=== PATIENT | female | born 1960 | race Caucasian/White ===

== ENCOUNTER → 2021-07-20 14:36 | Outpatient (CLI) | payer OTHER, SELFPAY ==
--- NOTE | 2021-07-20 14:39 | DI.RAD.S_ITS ---
PROCEDURE: XR CERVICAL SPINE 4V OR 5V INDICATIONS: NECK PAIN TECHNIQUE: 5 views of the cervical spine acquired. COMPARISON: None. FINDINGS: Bones: No fractures or dislocations to the C7-T1 level. Oblique images demonstrate no bony foraminal stenoses. Cervical straightening is present. Multilevel moderate degenerative disc space narrowing is present most notable at C5-6 and C6-7. Multilevel uncovertebral hypertrophy are present. Right foraminal narrowing is present most notable at C6-7 and C5-6 on the left. Soft tissues: No prevertebral soft tissue swelling. IMPRESSION: Multilevel degenerative changes most notable at C5-6 and C6-7. Dictated by: Lisy Henao M.D. on 07/20/2021 at 19:04 Approved by: Lisy Henao M.D. on 07/20/2021 at 19:04
== END ==
PROVIDERS: PCP Family Medicine; Referring Provider Physical Medicine & Rehabilitation; Visit Provider Physical Medicine & Rehabilitation
DX: M54.2 Cervicalgia (principal); M47.812 Spondylosis without myelopathy or radiculopathy, cervical region; G44.86 Cervicogenic headache; Z68.24 Body mass index [BMI] 24.0-24.9, adult
CPT/HCPCS: 72050; 99214

== ENCOUNTER → 2022-03-31 12:48 | Outpatient (CLI) | payer OTHER, SELFPAY ==
[2022-04-19 00:22] LABS: Miscellaneous to LabCorp Negative
== END ==
PROVIDERS: PCP Physician Assistant Medical; Visit Provider Physician Assistant Medical
DX: N76.0 Acute vaginitis (principal)
CPT/HCPCS: 87661; 87798; 87801

== ENCOUNTER 2022-05-02 08:57 | Outpatient (CLI) | payer OTHER, SELFPAY ==
[2022-05-02] VITALS (9 sets, daily range): BP systolic 106–134; BP diastolic 53–70; PULSE 71–81; RESP 12–21; TEMP 37.1; O2SAT 97–99
--- NOTE | 2022-05-02 08:59 | DI.RAD.S_ITS ---
PROCEDURE: PAIN C/T FACET INJ/BLK 1ST L INDICATIONS: SPINAL STENOSIS COMPARISON: [facility], RG, MRI C-SPINE W/O CONTRAST, 12/09/2021, 11:26. CR, XR CERVICAL SPINE 4V OR 5V, 07/20/2021, 14:42. FINDINGS: Fluoroscopic spot filming was performed to verify placement of spinal needles at the right C5-C6 and C6-C7 level(s), as labeled on the films. Appropriate location(s) of the needle tip(s) was confirmed by injection of iodinated contrast. IMPRESSION: Fluoroscopy guidance for needle placement. Dictated by: Peg Blancas M.D. on 05/02/2022 at 11:00 Approved by: Peg Blancas M.D. on 05/02/2022 at 11:01
[2022-05-02] MEDS: MIDAZOLAM 2 MG/2 ML VIAL IV (10:23)
[2022-05-02] MEDS: DEXAMETHASONE 10 MG/ML VIAL 20 MG INJ (10:27)
[2022-05-02] MEDS: IOPAMIDOL 15 ML VIAL 3 ML INJ (10:28)
[2022-05-02] MEDS: BUPIVACAINE 0.5% (PF) 10 ML VIAL INJ (10:28)
--- NOTE | 2022-05-02 10:39 | P.PCN_ITS ---
Date/Time/Diagnoses Date of procedure: 05/02/22 Time of procedure: 10:39 Pre-procedure diagnosis: 1. FACET ARTHROPATHY 2. AXIAL NECK PAIN Post-procedure diagnosis: same Procedure Notes Procedure: 1. FLUOROSCOPICALLY GUIDED, CONTRAST-CONTROLLED RIGHT C5/6 AND C6/7 FACET JOINT INJECTIONS WITH CONSCIOUS SEDATION. Indications: Elin is referred by PAC Harman for treatment of Axial Neck Pain Physician: Derek Thompson Total Fluoroscopy time (seconds): 8 Total sedation minutes: 9 Complications: none Procedure in detail & Post-procedure care: DESCRIPTION OF PROCEDURE Fluoroscopically guided, contrast-controlled right C5/6 and C6/7 facet joint injections with conscious sedation. Following review of allergy and review of potential side effects and complications, including, but not necessarily limited to, infection, allergic reaction, local tissue breakdown, stroke, temporary or permanent nerve injury and paralysis, the patient indicated that the patient understood and agreed to proceed. An informed consent document was signed by the patient, witnessed by a nurse, and placed in the patient's chart. Additionally, other treatment options including medications, modalities, and physical therapy were reviewed with the patient. After review of previous anaesthesic history and IV conscious sedation the patient was deemed safe to proceed with today?s procedure with IV conscious sedation as ASA class II designation. Safety time-out was performed to confirm patient ID, procedure to be performed and site of procedure. IV sedation was accomplished with a combination of 2mg of Versed was administered by the RN after DO order, titrated to patient comfort during the course of the procedure while the patient remained responsive to all verbal commands In the prone position, following sterile prep and drape of the cervical spine region, the posterior aspect of the right C5/6 and C6/7 facet joints were identified fluoroscopically. The skin was anesthetized via a 25-gauge 1.5-inch needle with 1% lidocaine solution into the corresponding facet joints. At this point, a 25-gauge 2.5-inch spinal needle was atraumatically introduced and advanced under fluoroscopic guidance into the corresponding facet joints. Following negative aspiration, injections of approximately 0.2-cc of Isovue 200 confirmed interarticular placement without vascular uptake. At this point, a total of 1cc including 0.5cc or 5mg of dexamethasone combined with 0.5cc of 1% lidocaine solution was injected without complication into each of the corresponding facet joints. The procedure tolerated the procedure well without signs or symptoms of complications prior to transfer to the recovery area continued monitoring without incident. The patient was then transferred to the recovery area where they were observed for an appropriate period of time after the injection. The patient reported a VAS score of 7 prior to the procedure and a post- procedure VAS of 0. POST OP INSTRUCTIONS They were provided a Pain Log to continue to record their response to the target-specific procedure prior to their follow-up visit with their referring physician. Additionally, specific post-injection care instructions and a contact number to our office were provided if concerns arise regarding possible complications associated with the procedure are suspected.
== END 2022-05-02 10:59 | disposition home or self-care (01) ==
LOC: RAD 08:58
PROVIDERS: PCP Physician Assistant; Referring Provider Physical Medicine & Rehabilitation; Visit Provider Physical Medicine & Rehabilitation
DX: M47.812 Spondylosis without myelopathy or radiculopathy, cervical region (principal)
CPT/HCPCS: 64490; 64491; J1100; J2250

== ENCOUNTER → 2022-05-22 14:01 | Outpatient (CLI) | payer OTHER, SELFPAY | PROVIDERS: PCP Physician Assistant; Visit Provider Nurse Practitioner Adult Health | DX: N76.0 Acute vaginitis (principal) | CPT/HCPCS: 87798 ==

== ENCOUNTER → 2023-04-25 10:04 | Outpatient (CLI) | payer OTHER, SELFPAY | PROVIDERS: PCP Physician Assistant; Visit Provider Nurse Practitioner Adult Health | DX: N76.0 Acute vaginitis (principal) | CPT/HCPCS: 87798; 87801 ==

== ENCOUNTER 2023-12-31 13:45 | Outpatient (RCR) | payer OTHER, SELFPAY ==
--- NOTE | 2023-07-27 17:15 | PT.OIE ---
Current Diagnoses Stiffness of unspecified hip, not elsewhere classified (07/27/23) Low back pain, unspecified (07/27/23) Muscle weakness (generalized) (07/27/23) Stress incontinence (female) (male) (07/27/23) Other female genital prolapse (07/27/23) Unspecified dyspareunia (07/27/23) Past Medical History (Last Updated 05/23/23 @ 08:38 by PITA Rose) Cervicogenic headache Desquamative inflammatory vaginitis Facet arthropathy, cervical HNP (herniated nucleus pulposus), cervical Menopausal syndrome on hormone replacement therapy Pelvic floor relaxation Vulvovaginitis Past Surgical History (Last Reviewed 03/16/22 @ 13:45 by Derek Thompson DO) History of surgery on lower extremity Hx of tonsillectomy Visit Care Team Role Provider Type Carina Harman PA-C Family Provider Advanced Knife Setter Grinder Machine Primary Care Provider Specialty: Medical Address: [address] [place] [address], [facility] Email: [email or web address] PITA Rose Attending Provider Advanced Kn[employer] Setter Gr[employer] Machine Referring Provider Specialty: Medical Address: [address] [place] [address], [id number] Email: [email or web address] Physical Therapy Initial Evaluation PT-OP-A Visit Information Start: 07/10/23 16:35 Freq: Status: Active Protocol: Document 07/27/23 13:04 LRN (Rec: 07/27/23 13:56 LRN [id number]) Out-Patient Physical Therapy Visit Information Visit Information Visit Type Initial Evaluation Visit Start Time 13:04 Visit Stop Time 13:55 Visit Number 1 Evaluation Information Evaluation Date 07/27/23 Precautions Precautions Denies latex/tape allergy, celiac disease (age 38), on thyroid medication for hypothyroidism, depression controllled by medication, back pain from stenosis of lower spine and scoliosis as a child, last 2 yrs fallen x2 tripping, neck/TMJ pain since PT-OP-B Current Condition Start: 07/10/23 16:35 Freq: Status: Active Protocol: Document 07/27/23 13:04 LRN (Rec: 07/27/23 13:56 [facility] [id number]) Current Condition History of Current Condition Onset Date 4 yrs ago and recently Current Complaints Hasn't had sex for 3 months and 2x now outside skin irritated History of Current Condition Most recent onset of pain was 3 months ago. Treated with Flagence 6 wks ago and has been off the medication for 1 month. Topical estrogen irritates the PF tissues causing burning pain. Pt reports getting Bacterial Vaginitis causing urinary leakage ~ 2x/year. Pt states she is on hormone therapy and sexual intercourse is very irritating. Has been on 2 courses of anti-biotics ending a month ago and was cleared from infection (burning is gone). 4 yrs ago when it first happened (was told it was a kidney infection because blood in urine) was given topical and was given flagelence and the pain went away. So has been given the anti-biotic 2x/yr when the symptoms show. she was prescribed flagel (anti-biotic ) that cleared symptom of burning. Infection did not show up on testing. FLAGEL. Currently using estrogen tablet that isn't dissolving by morning. Using lubricant for intercourse (over the counter). Urinary leakage with cough, sneeze, jump, or can't get to bathroom in time. At time of referral, leakage was constant until BV cleared . Cough and lots of water makes her leak a lot more. Prior Treatments and Tests PT after having 3rd baby - treatment in [place]. Developmental History Developmental History 1st child at 40 yo 3 preg, 3 birtsh last child at 40, vaginal births 9-10# babies. No urinary leakage after pregnancies. Treatment Goals Patient/Caregiver Goals Pt goals: -learn PF ex's that may benefit her. - eliminate the urinary leakage (currently urinary leakage is 1-2x/day, small- drops of leakage (1/2 tsp). -decrease skin irritation on outside of labia. -decrease pain with intercourse. - Personal Factors Other Personal Factors That May Effect Frequent anti-biotic Therapy/Recovery treatments for Bacterial Vaginitis, Depression, hx of neck/back pain, spinal stenosis & scoliosis. PT-OP-C Subjective Start: 07/10/23 16:35 Freq: Status: Active Protocol: Document 07/27/23 13:04 LRN (Rec: 07/27/23 13:56 [facility] [id number]) Patient Questionnaires Pelvic Pain and Urgency/Frequency Patient Symptom Scale Pelvic Pain Score 13 OP-PT Pain Assessment Pain Assessment Grid Paper Pain Assessment Grid Completed Yes Location L LB Pain Location Details L lower back sacral border Intensity 3 Scale Used Numeric (0 - 10) Description Dull R neck Pain Location Details R neck/upper shoulder - anter & riveter Intensity 3 Scale Used Numeric (0 - 10) Description Dull Frequency Constant PT-OP-I Pelvic Floor Start: 07/10/23 16:35 Freq: Status: Active Protocol: Document 07/27/23 13:04 LRN (Rec: 07/27/23 13:56 [facility] [id number]) Pelvic Floor Assessment Urine Other Urinary Symptoms Strains to pass urine. Trigger is running water, Slow and hesitant stream. Leakage Cause Cough,Exercise,Sneeze Leaks Per Day 1-2x/day Voiding Frequency 10 Nocturia 1 Pads Used In 24 Hours 0 Bowel Bowel Symptoms Constipation Other Bowel Symptoms Constipation her whole life Fecal leakage noted the past month Bowel Movement Frequency 1/3 days Pelvic Clock Pelvic Clock 12-3 Tenderness,Tightness Pelvic Clock 3-6 Tenderness,Tightness Prolapse Cystocele Grade 3 Rectocele Grade 3 Perineal Descent Resting Present Bearing Present SEMG (uV) Quick Contraction 6 10 Second Contraction 10 Recruitment Pattern Fair Relaxation Poor/Slow Contraction Ability Manual Muscle Testing Left 1 Manual Muscle Testing Right 2 Manual Muscle Testing Posterior 0 Muscle Endurance (Seconds) 3 Number of Quick Contractions In 10 0 Seconds Comments Pelvic Floor Comments Pt external skin tissue is very dry. She has white chunks in labia minora and just inside vaginal canal. PT-OP-J Posture/Palpation/Skin Start: 07/10/23 16:35 Freq: Status: Active Protocol: Document 07/27/23 13:04 LRN (Rec: 07/27/23 13:56 [facility] [id number]) Posture Evaluation Position Standing Head/C-Spine Posture Neutral Position T-Spine Posture Flattened L-Spine Posture Increased Lordosis Arm Posture (L) Neutral,(R) Neutral Pelvis Posture Anteriorly Tilted Comments Posture Comments Above assessment is With shoes /orthotic; also noted mid thoracic curve w/apex on R ~T6 region. Assessment of spinal curvature without shoes/orthotic: Mid thoracic curve w/apex on R, Upper L/S w/apex on left. PT-OP-K Range of Motion Start: 07/10/23 16:35 Freq: Status: Active Protocol: Document 07/27/23 13:04 LRN (Rec: 07/27/23 13:56 LRN [id number]) Lumbar Spine Range of Motion Lumbar Spine Active Degrees Testing Position Standing Flexion 110 Extension 10 Rotation Left 45 Rotation Right 25 Lateral Flexion Left 22 Lateral Flexion Right 15 Hip Goniometric Range of Motion Hip Right Passive Testing Position Supine Abduction 30 Internal Rotation 35 External Rotation 65 Left Passive Testing Position Supine Abduction 28 Internal Rotation 30 External Rotation 55 PT-OP-M Strength Start: 07/10/23 16:35 Freq: Status: Active Protocol: Document 07/27/23 13:04 LRN (Rec: 07/27/23 13:56 LRN [id number]) Trunk Strength Trunk Manual Muscle Testing Rotation Right 4 Good Core Stabilization Good core strength (4/5) Hip Strength Hip Manual Muscle Testing Right Flexion (L2) 3+ Fair+ External Rotation 3 Fair Comments Strength is 5/5 except as indicated above. Left Flexion (L2) 3+ Fair+ External Rotation 3 Fair Comments Strength is 5/5 except as indicated above. PT-OP-Q Treatments Start: 07/10/23 16:35 Freq: Status: Active Protocol: Document 07/27/23 13:04 LRN (Rec: 07/27/23 13:56 LRN [id number]) Self-Care/Home Management Treatment Education Other Education Discussed results of evaluation, goals, and plan of care (POC) with pt, discussed attendance/cx/dns policy; pt agreeable to goals, attendance /cx/dns policy and POC. Issued, discussed, & reviewed Bladder Diary for pt to complete over the next 7 days. Explained how to fill out diary and counting of urination times and for tracking of bowel movements and bowel types (explained). Activities Self-Care/Home Management Activities Issued & reviewed HEP: Kegel ex's and discussed exercise of Quick Flicks, Long Holds and Aggravators. PT-OP-T Assessment and Plan Start: 07/10/23 16:35 Freq: Status: Active Protocol: Document 07/27/23 13:04 LRN (Rec: 07/27/23 13:56 LRN [id number]) Physical Therapy Assessment Rehab Potential Rehabilitation Potential Good Evaluation Complexity Number of Personal Factors/Comorbidities 3 or More Number of Body Systems Impaired 4 or More Clinical Presentation at Evaluation Evolving Impairments Impairments Pain,Posture,ROM,Strength, Transfers Other Impairments Lacks proper deep breathing method Goals Three Impairment Pain with intercourse Impairment Skin irritation of outside of labia Majora. Pain with intercourse Short Term Goal (STG) Refer pt back to provider for medication to improve tissue health to decrease skin irritation on outside of labia . STG Duration 4 wks-08/24/23 Informatica Goal (LTG) Decrease PF tone (L>R) and modify positions as needed to decrease pain with intercourse . LTG Duration 23 wks-01/04/24 Two Impairment Stress urinary leakage with Impairment Urinary leakage with cough, sneeze, jump, and trying to get to bathroom in time, ( currently urinary leakage is 1 -2x/day, small-drops of leakage). Short Term Goal (STG) Pt will be educated in urge deference technique to be able to walk to bathroom without urinary leakage. STG Duration 4 wks-08/24/23 Detention Goal (LTG) Improve PF strength with pt able to eliminate small drops of urinary leakage with cough, sneeze, jumping. LTG Duration 23 wks-01/04/24 One Impairment Lacks appropriate self care HEP. Short Term Goal (STG) Pt educated in proper transfers for core pressure management. STG Duration 4 wks-08/24/23 Informatica Goal (LTG) Pt will be independent in a self care HEP for PF L sided relaxation (stretching when cleared of infections) & PF strengthening for lift of PF. Core strengthening & LBP mobility ex's; L Hip ER/IR mobility ex's (1-2 wks, then emilia when equal); hip strengthening (flex, ER). LTG Duration 23 wks-01/04/24 Assessment Summary Assessment Pt is a 63 yo female who presents with c/o stress urinary incontinence, dyspareunia, LBP and demonstrates decreased PF/hip/ core strength & decreased L PF & hip mobility, lack of knowlege of core pressure management and HEP. The pt has white chunky discharge in vaginal region that will need further medical assessment since the pt reports recently being treated for bacterial vaginitis. The pt requests PT attendance every other week [place] therefore it is expected that the pt's rehab program will extend longer than normal. The pt will benefit from skilled physical therapy to work towards achieving the above stated goals. Physical Therapy Plan Frequency and Duration Frequency of Treatment 1x/Week Duration of treatment (weeks) 23 Plan of Care Start Date 07/27/23 Plan of Care End Date 01/04/24 Therapeutic Interventions Therapeutic Interventions Home Exercise Program,Joint Mobilizations,Manual Therapy, Neuromuscular Re-education, Self-Care/Home Management,Soft Tissue Mobilization, Therapeutic Activities, Therapeutic Exercises Modalities Biofeedback,Electric Stimulation Other Referrals/Consults Referrals/Consults Recommended If pt still exhibits white chunky discharge at her next appt, then recommend pt be cultured for possible vaginal infection. Pt assessment for medication to promote tissue health ( external/?internal estrogen creme). Next Visit Focus/Plan Next Note Type Treatment Note Next Visit Plan Review Bladder dairy and discussed fluid intake (AM/PM) , bowel movement frequency, & nighttime voiding frequency. Reassess for vaginal white chunks and if present, discuss return to referring provider for assessment. Educate in urge deference technique. Neuro-priti: Coordination of breathwork with transfers and ADLs. Education: PF muscles and internal organ positioning, explaining cystocele and rectocele and discussed how this can worsen with decreased bowel mobility and breath holding, proper BM, bowel care /massage, and program if needed. Education: PF hygiene, PF care. EXER/HEP: R PF strengthening/ L PF relaxation (stretch once cleared of possible infection) , Core/TA stab, L>R hip strengthening.
--- NOTE | 2023-07-27 17:16 | PT.OPPOC ---
Physical, Occupational & Speech Therapy At [facility] Current Diagnoses Stiffness of unspecified hip, not elsewhere classified (07/27/23) Low back pain, unspecified (07/27/23) Muscle weakness (generalized) (07/27/23) Stress incontinence (female) (male) (07/27/23) Other female genital prolapse (07/27/23) Unspecified dyspareunia (07/27/23) Visit Care Team Role Provider Type Carina Harman PA-C Family Provider Advanced Lime Mixer Primary Care Provider Specialty: Medical Address: [address] [place] [address], [address] Email: [email or web address] PITA Rose Attending Provider Advanced Lime Mixer Referring Provider Specialty: Medical Address: [address] [place] [address], [address] Email: [email or web address] Plan Of Care PT-OP-T Assessment and Plan Start: 07/10/23 16:35 Freq: Status: Active Protocol: Document 07/27/23 13:04 LRN (Rec: 07/27/23 13:56 LRN [id number]) Physical Therapy Assessment Rehab Potential Rehabilitation Potential Good Evaluation Complexity Number of Personal Factors/Comorbidities 3 or More Number of Body Systems Impaired 4 or More Clinical Presentation at Evaluation Evolving Impairments Impairments Pain,Posture,ROM,Strength, Transfers Other Impairments Lacks proper deep breathing method Goals Three Impairment Pain with intercourse Impairment Skin irritation of outside of labia Majora. Pain with intercourse Short Term Goal (STG) Refer pt back to provider for medication to improve tissue health to decrease skin irritation on outside of labia . STG Duration 4 wks-08/24/23 [facility] Goal (LTG) Decrease PF tone (L>R) and modify positions as needed to decrease pain with intercourse . LTG Duration 23 wks-01/04/24 Two Impairment Stress urinary leakage with Impairment Urinary leakage with cough, sneeze, jump, and trying to get to bathroom in time, ( currently urinary leakage is 1 -2x/day, small-drops of leakage). Short Term Goal (STG) Pt will be educated in urge deference technique to be able to walk to bathroom without urinary leakage. STG Duration 4 wks-08/24/23 [facility] Goal (LTG) Improve PF strength with pt able to eliminate small drops of urinary leakage with cough, sneeze, jumping. LTG Duration 23 wks-01/04/24 One Impairment Lacks appropriate self care HEP. Short Term Goal (STG) Pt educated in proper transfers for core pressure management. STG Duration 4 wks-08/24/23 [facility]ci Goal (LTG) Pt will be independent in a self care HEP for PF L sided relaxation (stretching when cleared of infections) & PF strengthening for lift of PF. Core strengthening & LBP mobility ex's; L Hip ER/IR mobility ex's (1-2 wks, then emilia when equal); hip strengthening (flex, ER). LTG Duration 23 wks-01/04/24 Assessment Summary Assessment Pt is a 63 yo female who presents with c/o stress urinary incontinence, dyspareunia, LBP and demonstrates decreased PF/hip/ core strength & decreased L PF & hip mobility, lack of knowlege of core pressure management and HEP. The pt has white chunky discharge in vaginal region that will need further medical assessment since the pt reports recently being treated for bacterial vaginitis. The pt requests PT attendance every other week due to difficulty with [place] medical services; therefore it is expected that the pt's rehab program will extend longer than normal. The pt will benefit from skilled physical therapy to work towards achieving the above stated goals. Physical Therapy Plan Frequency and Duration Frequency of Treatment 1x/Week Duration of treatment (weeks) 23 Plan of Care Start Date 07/27/23 Plan of Care End Date 01/04/24 Therapeutic Interventions Therapeutic Interventions Home Exercise Program,Joint Mobilizations,Manual Therapy, Neuromuscular Re-education, Self-Care/Home Management,Soft Tissue Mobilization, Therapeutic Activities, Therapeutic Exercises Modalities Biofeedback,Electric Stimulation Other Referrals/Consults Referrals/Consults Recommended If pt still exhibits white chunky discharge at her next appt, then recommend pt be cultured for possible vaginal infection. Pt assessment for medication to promote tissue health ( external/?internal estrogen creme). Next Visit Focus/Plan Next Note Type Treatment Note Next Visit Plan Review Bladder dairy and discussed fluid intake (AM/PM) , bowel movement frequency, & nighttime voiding frequency. Reassess for vaginal white chunks and if present, discuss return to referring provider for assessment. Educate in urge deference technique. Neuro-priti: Coordination of breathwork with transfers and ADLs. Education: PF muscles and internal organ positioning, explaining cystocele and rectocele and discussed how this can worsen with decreased bowel mobility and breath holding, proper BM, bowel care /massage, and program if needed. Education: PF hygiene, PF care. EXER/HEP: R PF strengthening/ L PF relaxation (stretch once cleared of possible infection) , Core/TA stab, L>R hip strengthening. Plan of Care Dates Plan of Care Start Date 07/27/23 Plan of Care End Date 01/04/24 Electronically Signed by: Lina Lopez, PT 07/27/23 [id number] If you are in agreement with this Plan of Care, please return a signed and dated copy. I have reviewed this Plan of Care and certify that the skilled therapy services above are required to meet the patient?s needs. Physician Signature Date Printed Name and Credentials Clinical Instructor Signature Printed Name and Credentials
--- NOTE | 2023-08-10 16:28 | PT.OTN ---
Current Diagnoses Stiffness of unspecified hip, not elsewhere classified (08/10/23) Low back pain, unspecified (08/10/23) Muscle weakness (generalized) (08/10/23) Stress incontinence (female) (male) (08/10/23) Other female genital prolapse (08/10/23) Unspecified dyspareunia (08/10/23) Physical Therapy Treatment Note PT-OP-A Visit Information Start: 07/10/23 16:35 Freq: Status: Active Protocol: Document 08/10/23 13:02 LRN (Rec: 08/10/23 13:48 LRN [id number]) Out-Patient Physical Therapy Visit Information Visit Information Visit Type Treatment Note Visit Start Time 13:02 Visit Stop Time 13:45 Evaluation Information Evaluation Date 07/27/23 Precautions Precautions Denies latex/tape allergy, celiac disease (age 38), on thyroid medication for hypothyroidism, depression controlled by medication, back pain from stenosis of lower spine and scoliosis as a child , last 2 yrs fallen x2 tripping, neck/TMJ pain since PT-OP-B Current Condition Start: 07/10/23 16:35 Freq: Status: Active Protocol: Document 07/27/23 13:04 LRN (Rec: 07/27/23 13:56 LRN [id number]) Current Condition History of Current Condition Onset Date 4 yrs ago and recently Current Complaints Hasn't had sex for 3 months and 2x now outside skin irritated History of Current Condition Most recent onset of pain was 3 months ago. Treated with Flagence 6 wks ago and has been off the medication for 1 month. Topical estrogen irritates the PF tissues causing burning pain. Pt reports getting Bacterial Vaginitis causing urinary leakage ~ 2x/year. Pt states she is on hormone therapy and sexual intercourse is very irritating. Has been on 2 courses of anti-biotics ending a month ago and was cleared from infection (burning is gone). 4 yrs ago when it first happened (was told it was a kidney infection because blood in urine) was given topical and was given flagelence and the pain went away. So has been given the anti-biotic 2x/yr when the symptoms show. she was prescribed flagel (anti-biotic ) that cleared symptom of burning. Infection did not show up on testing. FLAGEL. Currently using estrogen tablet that isn't dissolving by morning. Using lubricant for intercourse (over the counter). Urinary leakage with cough, sneeze, jump, or can't get to bathroom in time. At time of referral, leakage was constant until BV cleared . Cough and lots of water makes her leak a lot more. Prior Treatments and Tests PT after having 3rd baby - treatment in [place]. Developmental History Developmental History 1st child at 40 yo 3 preg, 3 birtsh last child at 40, vaginal births 9-10# babies. No urinary leakage after pregnancies. Treatment Goals Patient/Caregiver Goals Pt goals: -learn PF ex's that may benefit her. - eliminate the urinary leakage (currently urinary leakage is 1-2x/day, small- drops of leakage (1/2 tsp). -decrease skin irritation on outside of labia. -decrease pain with intercourse. - Personal Factors Other Personal Factors That May Effect Frequent anti-biotic Therapy/Recovery treatments for Bacterial Vaginitis, Depression, hx of neck/back pain, spinal stenosis & scoliosis. PT-OP-C Subjective Start: 07/10/23 16:35 Freq: Status: Active Protocol: Document 08/10/23 13:02 LRN (Rec: 08/10/23 13:48 LRN [id number]) OP-PT Subjective Patient Comments Patient Comments States she increased her estrogen to 3x/wk and she feels she no longer has discharge. Dr Alan will see her next month. Pain with intercourse is on outside of PF and once in not bad. Drink PT-OP-I Pelvic Floor Start: 07/10/23 16:35 Freq: Status: Active Protocol: Document 07/27/23 13:04 LRN (Rec: 07/27/23 13:56 LRN [id number]) Pelvic Floor Assessment Urine Other Urinary Symptoms Strains to pass urine. Trigger is running water, Slow and hesitant stream. Leakage Cause Cough,Exercise,Sneeze Leaks Per Day 1-2x/day Voiding Frequency 10 Nocturia 1 Pads Used In 24 Hours 0 Bowel Bowel Symptoms Constipation Other Bowel Symptoms Constipation her whole life Fecal leakage noted the past month Bowel Movement Frequency 1/3 days Pelvic Clock Pelvic Clock 12-3 Tenderness,Tightness Pelvic Clock 3-6 Tenderness,Tightness Prolapse Cystocele Grade 3 Rectocele Grade 3 Perineal Descent Resting Present Bearing Present SEMG (uV) Quick Contraction 6 10 Second Contraction 10 Recruitment Pattern Fair Relaxation Poor/Slow Contraction Ability Manual Muscle Testing Left 1 Manual Muscle Testing Right 2 Manual Muscle Testing Posterior 0 Muscle Endurance (Seconds) 3 Number of Quick Contractions In 10 0 Seconds Comments Pelvic Floor Comments Pt external skin tissue is very dry. She has white chunks in labia minora and just inside vaginal canal. PT-OP-J Posture/Palpation/Skin Start: 07/10/23 16:35 Freq: Status: Active Protocol: Document 07/27/23 13:04 LRN (Rec: 07/27/23 13:56 LRN [id number]) Posture Evaluation Position Standing Head/C-Spine Posture Neutral Position T-Spine Posture Flattened L-Spine Posture Increased Lordosis Arm Posture (L) Neutral,(R) Neutral Pelvis Posture Anteriorly Tilted Comments Posture Comments Above assessment is With shoes /orthotic; also noted mid thoracic curve w/apex on R ~T6 region. Assessment of spinal curvature without shoes/orthotic: Mid thoracic curve w/apex on R, Upper L/S w/apex on left. PT-OP-K Range of Motion Start: 07/10/23 16:35 Freq: Status: Active Protocol: Document 07/27/23 13:04 LRN (Rec: 07/27/23 13:56 LRN [id number]) Lumbar Spine Range of Motion Lumbar Spine Active Degrees Testing Position Standing Flexion 110 Extension 10 Rotation Left 45 Rotation Right 25 Lateral Flexion Left 22 Lateral Flexion Right 15 Hip Goniometric Range of Motion Hip Right Passive Testing Position Supine Abduction 30 Internal Rotation 35 External Rotation 65 Left Passive Testing Position Supine Abduction 28 Internal Rotation 30 External Rotation 55 PT-OP-M Strength Start: 07/10/23 16:35 Freq: Status: Active Protocol: Document 07/27/23 13:04 LRN (Rec: 07/27/23 13:56 LRN [id number]) Trunk Strength Trunk Manual Muscle Testing Rotation Right 4 Good Core Stabilization Good core strength (4/5) Hip Strength Hip Manual Muscle Testing Right Flexion (L2) 3+ Fair+ External Rotation 3 Fair Comments Strength is 5/5 except as indicated above. Left Flexion (L2) 3+ Fair+ External Rotation 3 Fair Comments Strength is 5/5 except as indicated above. PT-OP-Q Treatments Start: 07/10/23 16:35 Freq: Status: Active Protocol: Document 08/10/23 13:02 LRN (Rec: 08/10/23 13:48 LRN [id number]) Manual Therapy Treatment Soft Tissue Mobilization PF Body Location External PF and entry of PF Mobilization Type Other Intensity/Depth Moderate Body Position Hooklying Comments Pt had no areas of tenderness noted with external palpation. Pt had no notable tenderness at initial vaginal entry. Bowel massage Body Location Bowel massage PT and training of pt to self massage (reg & ILU) Mobilization Type Other Intensity/Depth mod Body Position Supine Comments Cuing to not dig in with fingers and to do 5 cycles of each I, L, U patterns. Educated pt in Bowel program with review of handout. Self-Care/Home Management Treatment Education Other Education Bladder diary review. Discussed fluid types, discussed fluid intake, urination times, times between voids, and bladder irritants, at length discussed bowel movement frequency. Training on Urge deference technique. Discussed Foods and Beverages Bladder Diet. Activities Self-Care/Home Management Activities Issued handouts for BM massage (ILU massage), Bowel program, & Urge deference technique. PT-OP-T Assessment and Plan Start: 07/10/23 16:35 Freq: Status: Active Protocol: Document 08/10/23 13:02 LRN (Rec: 08/10/23 13:48 [facility] [id number]) Physical Therapy Assessment Goals Three Impairment Pain with intercourse Impairment Skin irritation of outside of labia Majora. Pain with intercourse Short Term Goal (STG) Refer pt back to provider for medication to improve tissue health to decrease skin irritation on outside of labia . 08/10/23: Pt reports contacting provider and was increased in her times per week for using her estrogen creme and is having less discomfort with skin irritation. STG Duration 4 wks-08/24/23 (08/10/23: MET GOAL) Cream Tester Goal (LTG) Decrease PF tone (L>R) and modify positions as needed to decrease pain with intercourse . LTG Duration 23 wks-01/04/24 Two Impairment Stress urinary leakage with Impairment Urinary leakage with cough, sneeze, jump, and trying to get to bathroom in time, ( currently urinary leakage is 1 -2x/day, small-drops of leakage). Short Term Goal (STG) Pt will be educated in urge deference technique to be able to walk to bathroom without urinary leakage. 08/10/23: Pt educated in urge deference technique. STG Duration 4 wks-08/24/23 progressed Skilled Nursing Goal (LTG) Improve PF strength with pt able to eliminate small drops of urinary leakage with cough, sneeze, jumping. LTG Duration 23 wks-01/04/24 One Impairment Lacks appropriate self care HEP. Short Term Goal (STG) Pt educated in proper transfers for core pressure management. STG Duration 4 wks-08/24/23 Skilled Nursing Goal (LTG) Pt will be independent in a self care HEP for PF L sided relaxation (stretching when cleared of infections) & PF strengthening for lift of PF. Core strengthening & LBP mobility ex's; L Hip ER/IR mobility ex's (1-2 wks, then emilia when equal); hip strengthening (flex, ER). 08/10/23: HEP: BM massage. LTG Duration 23 wks-01/04/24 progressed 08/10/23 Assessment Summary Assessment Pt is a 63 yo female who presents with c/o stress urinary incontinence, dyspareunia, LBP, decreased PF /hip/core strength, decreased L PF & hip mobility, lack of knowlege of core pressure management and HEP. Today pt is having less PF pain with increased use of estrogen creme as directed by her physician; showing no notable tenderness of her PF on palpation today. She was very receptive to information regarding norms associated to urination/BMs, and body hydration. Physical Therapy Plan Frequency and Duration Frequency of Treatment 1x/Week Duration of treatment (weeks) 23 Plan of Care Start Date 07/27/23 Plan of Care End Date 01/04/24 Next Visit Focus/Plan Next Note Type Treatment Note Next Visit Plan Assess response to urge deference technique. Neuro-priti: Coordination of breathwork with transfers and ADLs. Education: PF muscles and internal organ positioning, explaining cystocele and rectocele and discussed how this can worsen with decreased bowel mobility and breath holding, proper BM, bowel care /massage, and program if needed. Education: PF hygiene, PF care. EXER/HEP: R PF strengthening/ L PF relaxation (stretch once cleared of possible infection) , Core/TA stab, L>R hip strengthening.
--- NOTE | 2023-12-20 16:11 | PT.OTN ---
Current Diagnoses Stiffness of unspecified hip, not elsewhere classified (12/20/23) Low back pain, unspecified (12/20/23) Muscle weakness (generalized) (12/20/23) Stress incontinence (female) (male) (12/20/23) Other female genital prolapse (12/20/23) Unspecified dyspareunia (12/20/23) Physical Therapy Treatment Note PT-OP-A Visit Information Start: 07/10/23 16:35 Freq: Status: Active Protocol: Document 12/20/23 09:54 LRN (Rec: 12/20/23 10:46 LRN [id number]) Out-Patient Physical Therapy Visit Information Visit Information Visit Type Progress Note Visit Start Time 09:54 Visit Stop Time 10:36 Visit Number 40 Evaluation Information Evaluation Date 07/27/23 Precautions Precautions Denies latex/tape allergy, celiac disease (age 38), on thyroid medication for hypothyroidism, depression controlled by medication, back pain from stenosis of lower spine and scoliosis as a child , last 2 yrs fallen x2 tripping, neck/TMJ pain since PT-OP-B Current Condition Start: 07/10/23 16:35 Freq: Status: Active Protocol: Document 07/27/23 13:04 LRN (Rec: 07/27/23 13:56 LRN [id number]) Current Condition History of Current Condition Onset Date 4 yrs ago and recently Current Complaints Hasn't had sex for 3 months and 2x now outside skin irritated History of Current Condition Most recent onset of pain was 3 months ago. Treated with Flagence 6 wks ago and has been off the medication for 1 month. Topical estrogen irritates the PF tissues causing burning pain. Pt reports getting Bacterial Vaginitis causing urinary leakage ~ 2x/year. Pt states she is on hormone therapy and sexual intercourse is very irritating. Has been on 2 courses of anti-biotics ending a month ago and was cleared from infection (burning is gone). 4 yrs ago when it first happened (was told it was a kidney infection because blood in urine) was given topical and was given flagelence and the pain went away. So has been given the anti-biotic 2x/yr when the symptoms show. she was prescribed flagel (anti-biotic ) that cleared symptom of burning. Infection did not show up on testing. FLAGEL. Currently using estrogen tablet that isn't dissolving by morning. Using lubricant for intercourse (over the counter). Urinary leakage with cough, sneeze, jump, or can't get to bathroom in time. At time of referral, leakage was constant until BV cleared . Cough and lots of water makes her leak a lot more. Prior Treatments and Tests PT after having 3rd baby - treatment in [place]. Developmental History Developmental History 1st child at 40 yo 3 preg, 3 birtsh last child at 40, vaginal births 9-10# babies. No urinary leakage after pregnancies. Treatment Goals Patient/Caregiver Goals Pt goals: -learn PF ex's that may benefit her. - eliminate the urinary leakage (currently urinary leakage is 1-2x/day, small- drops of leakage (1/2 tsp). -decrease skin irritation on outside of labia. -decrease pain with intercourse. - Personal Factors Other Personal Factors That May Effect Frequent anti-biotic Therapy/Recovery treatments for Bacterial Vaginitis, Depression, hx of neck/back pain, spinal stenosis & scoliosis. PT-OP-C Subjective Start: 07/10/23 16:35 Freq: Status: Active Protocol: Document 12/20/23 09:54 LRN (Rec: 12/20/23 10:46 LRN [id number]) OP-PT Subjective Patient Comments Patient Comments States she needs more appts. Saw Dr. Farheen Alan (primary care) in [place] after the heart attack and was told no urinary infection. PT-OP-I Pelvic Floor Start: 07/10/23 16:35 Freq: Status: Active Protocol: Document 12/20/23 09:54 LRN (Rec: 12/20/23 10:46 LRN [id number]) Pelvic Floor Assessment Pelvic Clock Pelvic Clock Other No areas of tenderness internally and externally. Redness externally at PF clock 6. Prolapse Cystocele Grade 3 Rectocele Grade 3 Contraction Ability Manual Muscle Testing Left 2 Manual Muscle Testing Right 1 Manual Muscle Testing Anterior 2 Manual Muscle Testing Posterior 3 Muscle Endurance (Seconds) 5 Number of Quick Contractions In 10 4 Seconds PT-OP-J Posture/Palpation/Skin Start: 07/10/23 16:35 Freq: Status: Active Protocol: Document 07/27/23 13:04 LRN (Rec: 07/27/23 13:56 LRN [id number]) Posture Evaluation Position Standing Head/C-Spine Posture Neutral Position T-Spine Posture Flattened L-Spine Posture Increased Lordosis Arm Posture (L) Neutral,(R) Neutral Pelvis Posture Anteriorly Tilted Comments Posture Comments Above assessment is With shoes /orthotic; also noted mid thoracic curve w/apex on R ~T6 region. Assessment of spinal curvature without shoes/orthotic: Mid thoracic curve w/apex on R, Upper L/S w/apex on left. PT-OP-K Range of Motion Start: 07/10/23 16:35 Freq: Status: Active Protocol: Document 07/27/23 13:04 LRN (Rec: 07/27/23 13:56 LRN [id number]) Lumbar Spine Range of Motion Lumbar Spine Active Degrees Testing Position Standing Flexion 110 Extension 10 Rotation Left 45 Rotation Right 25 Lateral Flexion Left 22 Lateral Flexion Right 15 Hip Goniometric Range of Motion Hip Right Passive Testing Position Supine Abduction 30 Internal Rotation 35 External Rotation 65 Left Passive Testing Position Supine Abduction 28 Internal Rotation 30 External Rotation 55 PT-OP-M Strength Start: 07/10/23 16:35 Freq: Status: Active Protocol: Document 07/27/23 13:04 LRN (Rec: 07/27/23 13:56 LRN [id number]) Trunk Strength Trunk Manual Muscle Testing Rotation Right 4 Good Core Stabilization Good core strength (4/5) Hip Strength Hip Manual Muscle Testing Right Flexion (L2) 3+ Fair+ External Rotation 3 Fair Comments Strength is 5/5 except as indicated above. Left Flexion (L2) 3+ Fair+ External Rotation 3 Fair Comments Strength is 5/5 except as indicated above. PT-OP-Q Treatments Start: 07/10/23 16:35 Freq: Status: Active Protocol: Document 12/20/23 09:54 LRN (Rec: 12/20/23 10:46 LRN [id number]) Therapeutic Exercises Supine Exercises Long Hold Kegels Supine Exercise Name 10 SH/20 SR Reps/Minutes 7' Comments Internal strength check (see PF) Quick Kegels Supine Exercise Name 1 SH/2 SR Reps/Minutes 4' Comments Internal strength check (see PF) Deep Breathing Reps/Minutes 3' Comments Good mechanics after training Sitting Exercises Kegel w/TB Sitting Exercise Name I/S of Kegel w/TB Reps/Minutes 1' Standing Exercises Kegel w/TB Standing Exercise Name I/S of Kegel with TB Reps/Minutes 1' Therapeutic Activity Therapeutic Activity Coord breath w/transfers Name Stand<>sit<>supine Reps/Minutes 8' Comments Cued for coordinated breath with mvmt. Self-Care/Home Management Treatment Education Other Education Discussed and educated pt in PF hygiene & vulvar care. Educated pt in standing/ sitting Kegel with hip AB (lv2 TB) Activities Self-Care/Home Management Activities Issued handouts for: Genital Vulvar and Genital Hygiene for hygieine care, Issued & reviewed: Coordinated transfer with breath and with ADLs. HEP: Issued Lev 2 TB PT-OP-T Assessment and Plan Start: 07/10/23 16:35 Freq: Status: Active Protocol: Document 12/20/23 09:54 LRN (Rec: 12/20/23 10:46 LRN [id number]) Physical Therapy Assessment Goals Three Impairment Pain with intercourse Impairment Skin irritation of outside of labia Majora. Pain with intercourse Short Term Goal (STG) Refer pt back to provider for medication to improve tissue health to decrease skin irritation on outside of labia . 08/10/23: Pt reports contacting provider and was increased in her times per week for using her estrogen creme and is having less discomfort with skin irritation. STG Duration 4 wks-08/24/23 (08/10/23: MET GOAL) Clinic Coordinator Goal (LTG) Decrease PF tone (L>R) and modify positions as needed to decrease pain with intercourse . 12/20/23: Very little pain on the outside with intercourse since using estrogen creme. No pain with intercourse on the inside. Increased muscle bulk, but no tenderness. LTG Duration 23 wks-01/04/24 progressed 12/20/23 Two Impairment Stress urinary leakage with Impairment Urinary leakage with cough, sneeze, jump, and trying to get to bathroom in time, ( currently urinary leakage is 1 -2x/day, small-drops of leakage). Short Term Goal (STG) Pt will be educated in urge deference technique to be able to walk to bathroom without urinary leakage. 08/10/23: Pt educated in urge deference technique. 12/20/23: No able to make it to bathroom w/o leaking if have a strong urge. On the day w/o the estrogen patch, the urge is a lot stronger and the leakage is a lot worse. STG Duration 4 wks-08/24/23 progressed Clinic Coordinator Goal (LTG) Improve PF strength with pt able to eliminate small drops of urinary leakage with cough, sneeze, jumping. LTG Duration 23 wks-01/04/24 One Impairment Lacks appropriate self care HEP. Short Term Goal (STG) Pt educated in proper transfers for core pressure management. 12/20/23: Pt educated in transfers with core pressure management and educated with ADLs. STG Duration 4 wks-08/24/23 (12/20/23: MET GOAL) Clinic Coordinator Goal (LTG) Pt will be independent in a self care HEP for PF L sided relaxation (stretching when cleared of infections) & PF strengthening for lift of PF. Core strengthening & LBP mobility ex's; L Hip ER/IR mobility ex's (1-2 wks, then emilia when equal); hip strengthening (flex, ER). 08/10/23: HEP: BM massage. LTG Duration 23 wks-01/04/24 progressed 08/10/23 Assessment Summary Assessment 63 yo female with SYED, LBP, dec'd PF/hip/core strength & L hip mobility. Dyspareunia resolved to pt's satisfaction. Pt needs PF strengthening to resolve SYED and hip/core strengtthening and hip mobility ex's. PF tissue health much improved with no areas of tenderness external and internal. Physical Therapy Plan Frequency and Duration Frequency of Treatment 1x/Week Duration of treatment (weeks) 23 Plan of Care Start Date 07/27/23 Plan of Care End Date 01/04/24 Next Visit Focus/Plan Next Note Type Treatment Note Next Visit Plan Assess response to urge deference technique. Neuro-priti: Review if pt able to demonstrate coordination of breathwork with transfers and ADLs. Education: PF muscles and internal organ positioning, explaining cystocele and rectocele and discussed how this can worsen with decreased bowel mobility and breath holding, proper BM, bowel care /massage, and program if needed. EXER/HEP: R PF strengthening/ monitor for ?L PF relaxation ( stretch once cleared of possible infection), Core/TA stab, L>R hip strengthening.
--- NOTE | 2023-12-31 16:18 | PT.OTN ---
Current Diagnoses Stiffness of unspecified hip, not elsewhere classified (12/31/23) Low back pain, unspecified (12/31/23) Muscle weakness (generalized) (12/31/23) Stress incontinence (female) (male) (12/31/23) Other female genital prolapse (12/31/23) Unspecified dyspareunia (12/31/23) Physical Therapy Treatment Note PT-OP-A Visit Information Start: 07/10/23 16:35 Freq: Status: Active Protocol: Document 12/31/23 13:48 LRN (Rec: 12/31/23 14:36 LRN [id number]) Out-Patient Physical Therapy Visit Information Visit Information Visit Type Progress Note Visit Start Time 13:48 Visit Stop Time 14:35 Visit Number 4 Evaluation Information Evaluation Date 07/27/23 Precautions Precautions Denies latex/tape allergy, celiac disease (age 38), on thyroid medication for hypothyroidism, depression controlled by medication, back pain from stenosis of lower spine and scoliosis as a child , last 2 yrs fallen x2 tripping, neck/TMJ pain since PT-OP-B Current Condition Start: 07/10/23 16:35 Freq: Status: Active Protocol: Document 07/27/23 13:04 LRN (Rec: 07/27/23 13:56 LRN [id number]) Current Condition History of Current Condition Onset Date 4 yrs ago and recently Current Complaints Hasn't had sex for 3 months and 2x now outside skin irritated History of Current Condition Most recent onset of pain was 3 months ago. Treated with Flagence 6 wks ago and has been off the medication for 1 month. Topical estrogen irritates the PF tissues causing burning pain. Pt reports getting Bacterial Vaginitis causing urinary leakage ~ 2x/year. Pt states she is on hormone therapy and sexual intercourse is very irritating. Has been on 2 courses of anti-biotics ending a month ago and was cleared from infection (burning is gone). 4 yrs ago when it first happened (was told it was a kidney infection because blood in urine) was given topical and was given flagelence and the pain went away. So has been given the anti-biotic 2x/yr when the symptoms show. she was prescribed flagel (anti-biotic ) that cleared symptom of burning. Infection did not show up on testing. FLAGEL. Currently using estrogen tablet that isn't dissolving by morning. Using lubricant for intercourse (over the counter). Urinary leakage with cough, sneeze, jump, or can't get to bathroom in time. At time of referral, leakage was constant until BV cleared . Cough and lots of water makes her leak a lot more. Prior Treatments and Tests PT after having 3rd baby - treatment in [place]. Developmental History Developmental History 1st child at 40 yo 3 preg, 3 birtsh last child at 40, vaginal births 9-10# babies. No urinary leakage after pregnancies. Treatment Goals Patient/Caregiver Goals Pt goals: -learn PF ex's that may benefit her. - eliminate the urinary leakage (currently urinary leakage is 1-2x/day, small- drops of leakage (1/2 tsp). -decrease skin irritation on outside of labia. -decrease pain with intercourse. - Personal Factors Other Personal Factors That May Effect Frequent anti-biotic Therapy/Recovery treatments for Bacterial Vaginitis, Depression, hx of neck/back pain, spinal stenosis & scoliosis. PT-OP-C Subjective Start: 07/10/23 16:35 Freq: Status: Active Protocol: Document 12/31/23 13:48 LRN (Rec: 12/31/23 14:36 LRN [id number]) OP-PT Subjective Patient Comments Patient Comments States use of urge deference technique helps. STates she is not consistent with bowels. Has been sick, so might be why she is having a little more discomfort, or because of her low thyroid condition slows the gut. Patient Questionnaires Pelvic Pain and Urgency/Frequency Patient Symptom Scale Pelvic Pain Score 6 PT-OP-I Pelvic Floor Start: 07/10/23 16:35 Freq: Status: Active Protocol: Document 12/31/23 13:48 LRN (Rec: 12/31/23 14:36 LRN [id number]) Pelvic Floor Assessment Prolapse Cystocele Grade 3 Rectocele Grade 3 Prolapse Comments Rectocele extends beyond the vaginal opening. Cystocele doesn't extend beyond the vaginal opening. Comments Pelvic Floor Comments No palpable pain in the PF clock. PT-OP-J Posture/Palpation/Skin Start: 07/10/23 16:35 Freq: Status: Active Protocol: Document 07/27/23 13:04 LRN (Rec: 07/27/23 13:56 LRN [id number]) Posture Evaluation Position Standing Head/C-Spine Posture Neutral Position T-Spine Posture Flattened L-Spine Posture Increased Lordosis Arm Posture (L) Neutral,(R) Neutral Pelvis Posture Anteriorly Tilted Comments Posture Comments Above assessment is With shoes /orthotic; also noted mid thoracic curve w/apex on R ~T6 region. Assessment of spinal curvature without shoes/orthotic: Mid thoracic curve w/apex on R, Upper L/S w/apex on left. PT-OP-K Range of Motion Start: 07/10/23 16:35 Freq: Status: Active Protocol: Document 07/27/23 13:04 LRN (Rec: 07/27/23 13:56 LRN [id number]) Lumbar Spine Range of Motion Lumbar Spine Active Degrees Testing Position Standing Flexion 110 Extension 10 Rotation Left 45 Rotation Right 25 Lateral Flexion Left 22 Lateral Flexion Right 15 Hip Goniometric Range of Motion Hip Right Passive Testing Position Supine Abduction 30 Internal Rotation 35 External Rotation 65 Left Passive Testing Position Supine Abduction 28 Internal Rotation 30 External Rotation 55 PT-OP-M Strength Start: 07/10/23 16:35 Freq: Status: Active Protocol: Document 07/27/23 13:04 LRN (Rec: 07/27/23 13:56 LRN [id number]) Trunk Strength Trunk Manual Muscle Testing Rotation Right 4 Good Core Stabilization Good core strength (4/5) Hip Strength Hip Manual Muscle Testing Right Flexion (L2) 3+ Fair+ External Rotation 3 Fair Comments Strength is 5/5 except as indicated above. Left Flexion (L2) 3+ Fair+ External Rotation 3 Fair Comments Strength is 5/5 except as indicated above. PT-OP-Q Treatments Start: 07/10/23 16:35 Freq: Status: Active Protocol: Document 12/31/23 13:48 LRN (Rec: 12/31/23 14:36 LRN [id number]) Therapeutic Exercises Supine Exercises Long Hold Kegels Supine Exercise Name 10 SH/20 SR - isometric hold Equipment Used Lev2 TB Reps/Minutes 2' Sidelying Exercises Kegel/Clamshell Sidelying Exercise Name Quick & Long hold Kegels Reps/Minutes 1 SH/2 SR-10x each; 10 SH/20 SR - 10 lifts Therapeutic Activity Therapeutic Activity Coord breath w/transfers Name Stand<>sit<>supine Reps/Minutes 3' Comments Cued for coordinated breath with mvmt. Self-Care/Home Management Treatment Education Other Education Discussed at length her progress and slowness of her gut. Activities Self-Care/Home Management Activities Issued Lv 3 TB for Thad BKFO/ Kegel. Issued & reviewed HEP: Clamshell/Kegel & Kegel/PF co- contrction with thad hip AD & BKFO. PT-OP-T Assessment and Plan Start: 07/10/23 16:35 Freq: Status: Active Protocol: Document 12/31/23 13:48 LRN (Rec: 12/31/23 14:36 LRN [id number]) Physical Therapy Assessment Rehab Potential Rehabilitation Potential Good Evaluation Complexity Number of Personal Factors/Comorbidities 3 or More Number of Body Systems Impaired 4 or More Clinical Presentation at Evaluation Evolving Impairments Impairments Activity Tolerance,Pain,Soft Tissue Mobility,Strength Other Impairments Difficulty with PF relaxation. Goals Three Impairment Pain with intercourse Impairment Skin irritation of outside of labia Majora. Pain with intercourse Short Term Goal (STG) Refer pt back to provider for medication to improve tissue health to decrease skin irritation on outside of labia . 08/10/23: Pt reports contacting provider and was increased in her times per week for using her estrogen creme and is having less discomfort with skin irritation. STG Duration 4 wks-08/24/23 (08/10/23: MET GOAL) Reimbursement Liaison Goal (LTG) Decrease PF tone (L>R) and modify positions as needed to decrease pain with intercourse . 12/20/23: Very little pain on the outside with intercourse since using estrogen creme. No pain with intercourse on the inside. Increased muscle bulk, but no tenderness. 12/31/23: Soft tissue irritation at superficial PF Clock 6. LTG Duration 02/29/24 progressed 12/20/23 Two Impairment Stress urinary leakage with Impairment Urinary leakage with cough, sneeze, jump, and trying to get to bathroom in time, ( currently urinary leakage is 1 -2x/day, small-drops of leakage). Short Term Goal (STG) Pt will be educated in urge deference technique to be able to walk to bathroom without urinary leakage. 08/10/23: Pt educated in urge deference technique. 12/20/23: No able to make it to bathroom w/o leaking if have a strong urge. On the day w/o the estrogen patch, the urge is a lot stronger and the leakage is a lot worse. 12/31/23: Thniks she is not leaking walking to bathroom using the urge deference technique. STG Duration 4 wks-08/24/23 (12/30/13: MET GOAL) Reimbursement Liaison Goal (LTG) Improve PF strength with pt able to eliminate small drops of urinary leakage with cough, sneeze, jumping. 12/31/23: Coughing illness with onset of urinary leakage. LTG Duration 02/29/24 One Impairment Lacks appropriate self care HEP. Short Term Goal (STG) Pt educated in proper transfers for core pressure management. 12/20/23: Pt educated in transfers with core pressure management and educated with ADLs. STG Duration 4 wks-08/24/23 (12/20/23: MET GOAL) Reimbursement Liaison Goal (LTG) Pt will be independent in a self care HEP for PF L sided relaxation (stretching when cleared of infections) & PF strengthening for lift of PF. Core strengthening & LBP mobility ex's; L Hip ER/IR mobility ex's (1-2 wks, then emilia when equal); hip strengthening (flex, ER). 08/10/23: HEP: BM massage. 12/31/23: Reviewed HEP: Kegel ex's issued 07/27/23 & Kegel/PF co-contrction with thad hip AD & BKFO. LTG Duration 02/29/24 progressed 12/31/23 Assessment Summary Assessment Pt is a 63 yo female with SYED, LBP, dec'd PF/hip/core strength & L hip mobility. She had dyspareunia that has resolved to pt's satisfaction, and she is able to walk to the bathroom without urinary leakage. PUF score has decreased from 13 initially to 6, showing decreased frequency of symptoms. Pt is on a HEP of PF strengthening ex's. She has been seen for only 4 visits over the past 5 months due to a delay in her therapy at the start and because of summer schedules and difficulty with scheduling . Today she had confusion with coordinating breathwork with transfers, but understood much better after training. The pt would benefit from continued skilled physical therapy over a longer period of time to accomodate for the holidays in order to complete her program and progress her towards achieving the above stated goals. Physical Therapy Plan Frequency and Duration Frequency of Treatment 1x/Week Duration of treatment (weeks) 8 Plan of Care Start Date 12/31/23 Plan of Care End Date 02/29/24 Therapeutic Interventions Therapeutic Interventions Home Exercise Program,Manual Therapy,Neuromuscular Re- education,Self-Care/Home Management,Soft Tissue Mobilization,Therapeutic Activities,Therapeutic Exercises Next Visit Focus/Plan Next Note Type Treatment Note Next Visit Plan Next: Monitor if pt is coordinating breathwork with transfers, and review/training on coordination of breathwork with ADLs. Assess for Skin irritation (outside of labia Majora), and pain with intercourse. Education: PF muscles and internal organ positioning, explaining cystocele and rectocele and discussed how this can worsen with decreased bowel mobility and breath holding, proper BM, bowel care /massage, and program if needed. EXER/HEP: R PF strengthening/ monitor for ?L PF relaxation ( stretch once cleared of possible infection), Core/TA stab, L>R hip strengthening.
--- NOTE | 2024-01-31 12:16 | PT-OP ANOTE ---
Per phone, pt reports she has had pneumonia and is still not feeling well and is thinking she should quit until the spring because she has not been doing the ex's because she feels poorly. Agreed with pt that if she is feeling poorly and not able to return for therapy, discharging now and returning to therapy when she feels better would be a good idea. Pt requesting discharge from therapy today.
--- NOTE | 2024-01-31 12:30 | PT.OPDS ---
Current Diagnoses Stiffness of unspecified hip, not elsewhere classified (12/31/23) Low back pain, unspecified (12/31/23) Muscle weakness (generalized) (12/31/23) Stress incontinence (female) (male) (12/31/23) Other female genital prolapse (12/31/23) Unspecified dyspareunia (12/31/23) Visit Care Team Role Provider Type Carina Harman PA-C Family Provider Advanced Insurance Verifier Primary Care Provider Specialty: Medical Address: [address] [place] [address], [id number] Email: [email or web address] PITA Rose Attending Provider Advanced Insurance Verifier Referring Provider Specialty: Medical Address: [address] [place] [address], [id number] Email: [email or web address] Visit Number Visit Number 4 Discharge Summary PT-OP-B Current Condition Start: 07/10/23 16:35 Freq: Status: Active Protocol: Document 07/27/23 13:04 LRN (Rec: 07/27/23 13:56 LRN [id number]) Current Condition History of Current Condition Onset Date 4 yrs ago and recently Current Complaints Hasn't had sex for 3 months and 2x now outside skin irritated History of Current Condition Most recent onset of pain was 3 months ago. Treated with Flagence 6 wks ago and has been off the medication for 1 month. Topical estrogen irritates the PF tissues causing burning pain. Pt reports getting Bacterial Vaginitis causing urinary leakage ~ 2x/year. Pt states she is on hormone therapy and sexual intercourse is very irritating. Has been on 2 courses of anti-biotics ending a month ago and was cleared from infection (burning is gone). 4 yrs ago when it first happened (was told it was a kidney infection because blood in urine) was given topical and was given flagelence and the pain went away. So has been given the anti-biotic 2x/yr when the symptoms show. she was prescribed flagel (anti-biotic ) that cleared symptom of burning. Infection did not show up on testing. FLAGEL. Currently using estrogen tablet that isn't dissolving by morning. Using lubricant for intercourse (over the counter). Urinary leakage with cough, sneeze, jump, or can't get to bathroom in time. At time of referral, leakage was constant until BV cleared . Cough and lots of water makes her leak a lot more. Prior Treatments and Tests PT after having 3rd baby - treatment in [place]. Developmental History Developmental History 1st child at 40 yo 3 preg, 3 birtsh last child at 40, vaginal births 9-10# babies. No urinary leakage after pregnancies. Treatment Goals Patient/Caregiver Goals Pt goals: -learn PF ex's that may benefit her. - eliminate the urinary leakage (currently urinary leakage is 1-2x/day, small- drops of leakage (1/2 tsp). -decrease skin irritation on outside of labia. -decrease pain with intercourse. - Personal Factors Other Personal Factors That May Effect Frequent anti-biotic Therapy/Recovery treatments for Bacterial Vaginitis, Depression, hx of neck/back pain, spinal stenosis & scoliosis. PT-OP-C Subjective Start: 07/10/23 16:35 Freq: Status: Active Protocol: Document 01/31/24 12:20 LRN (Rec: 01/31/24 12:30 LRN [id number]) OP-PT Subjective Patient Comments Patient Comments Per phone conversation pt reports being ill with pneumonia and requests discharge and that she will seek new referral to return in the spring. PT-OP-I Pelvic Floor Start: 07/10/23 16:35 Freq: Status: Active Protocol: Document 12/31/23 13:48 LRN (Rec: 12/31/23 14:36 LRN [id number]) Pelvic Floor Assessment Prolapse Cystocele Grade 3 Rectocele Grade 3 Prolapse Comments Rectocele extends beyond the vaginal opening. Cystocele doesn't extend beyond the vaginal opening. Comments Pelvic Floor Comments No palpable pain in the PF clock. PT-OP-J Posture/Palpation/Skin Start: 07/10/23 16:35 Freq: Status: Active Protocol: Document 07/27/23 13:04 LRN (Rec: 07/27/23 13:56 LRN [id number]) Posture Evaluation Position Standing Head/C-Spine Posture Neutral Position T-Spine Posture Flattened L-Spine Posture Increased Lordosis Arm Posture (L) Neutral,(R) Neutral Pelvis Posture Anteriorly Tilted Comments Posture Comments Above assessment is With shoes /orthotic; also noted mid thoracic curve w/apex on R ~T6 region. Assessment of spinal curvature without shoes/orthotic: Mid thoracic curve w/apex on R, Upper L/S w/apex on left. PT-OP-K Range of Motion Start: 07/10/23 16:35 Freq: Status: Active Protocol: Document 07/27/23 13:04 LRN (Rec: 07/27/23 13:56 LRN [id number]) Lumbar Spine Range of Motion Lumbar Spine Active Degrees Testing Position Standing Flexion 110 Extension 10 Rotation Left 45 Rotation Right 25 Lateral Flexion Left 22 Lateral Flexion Right 15 Hip Goniometric Range of Motion Hip Right Passive Testing Position Supine Abduction 30 Internal Rotation 35 External Rotation 65 Left Passive Testing Position Supine Abduction 28 Internal Rotation 30 External Rotation 55 PT-OP-M Strength Start: 07/10/23 16:35 Freq: Status: Active Protocol: Document 07/27/23 13:04 LRN (Rec: 07/27/23 13:56 LRN [id number]) Trunk Strength Trunk Manual Muscle Testing Rotation Right 4 Good Core Stabilization Good core strength (4/5) Hip Strength Hip Manual Muscle Testing Right Flexion (L2) 3+ Fair+ External Rotation 3 Fair Comments Strength is 5/5 except as indicated above. Left Flexion (L2) 3+ Fair+ External Rotation 3 Fair Comments Strength is 5/5 except as indicated above. PT-OP-T Assessment and Plan Start: 07/10/23 16:35 Freq: Status: Active Protocol: Document 01/31/24 12:20 LRN (Rec: 01/31/24 12:30 LRN [id number]) Physical Therapy Assessment Goals Three Impairment Pain with intercourse Impairment Skin irritation of outside of labia Majora. Pain with intercourse Short Term Goal (STG) Refer pt back to provider for medication to improve tissue health to decrease skin irritation on outside of labia . 08/10/23: Pt reports contacting provider and was increased in her times per week for using her estrogen creme and is having less discomfort with skin irritation. STG Duration 4 wks-08/24/23 (08/10/23: MET GOAL) Snf Goal (LTG) Decrease PF tone (L>R) and modify positions as needed to decrease pain with intercourse . 12/20/23: Very little pain on the outside with intercourse since using estrogen creme. No pain with intercourse on the inside. Increased muscle bulk, but no tenderness. 12/31/23: Soft tissue irritation at superficial PF Clock 6. LTG Duration 02/29/24 01/31/24: Goal not met due to early discharge @ pt request Two Impairment Stress urinary leakage with Impairment Urinary leakage with cough, sneeze, jump, and trying to get to bathroom in time, ( currently urinary leakage is 1 -2x/day, small-drops of leakage). Short Term Goal (STG) Pt will be educated in urge deference technique to be able to walk to bathroom without urinary leakage. 08/10/23: Pt educated in urge deference technique. 12/20/23: No able to make it to bathroom w/o leaking if have a strong urge. On the day w/o the estrogen patch, the urge is a lot stronger and the leakage is a lot worse. 12/31/23: Thniks she is not leaking walking to bathroom using the urge deference technique. STG Duration 4 wks-08/24/23 (12/30/13: MET GOAL) Desktop Manager Goal (LTG) Improve PF strength with pt able to eliminate small drops of urinary leakage with cough, sneeze, jumping. 12/31/23: Coughing illness with onset of urinary leakage. LTG Duration 02/29/24 01/31/24: Goal not met due to early discharge @ pt request One Impairment Lacks appropriate self care HEP. Short Term Goal (STG) Pt educated in proper transfers for core pressure management. 12/20/23: Pt educated in transfers with core pressure management and educated with ADLs. STG Duration 4 wks-08/24/23 (12/20/23: MET GOAL) Snf Goal (LTG) Pt will be independent in a self care HEP for PF L sided relaxation (stretching when cleared of infections) & PF strengthening for lift of PF. Core strengthening & LBP mobility ex's; L Hip ER/IR mobility ex's (1-2 wks, then emilia when equal); hip strengthening (flex, ER). 08/10/23: HEP: BM massage. 12/31/23: Reviewed HEP: Kegel ex's issued 07/27/23 & Kegel/PF co-contrction with jamie hip AD & BKFO. LTG Duration 02/29/24 01/31/24: Goal partially met due to early discharge @ pt request Assessment Summary Assessment Pt is a 63 yo female with SYED, LBP, dec'd PF/hip/core strength & L hip mobility. She had dyspareunia that has resolved to pt's satisfaction, and she is able to walk to the bathroom without urinary leakage, and showing decreased frequency of symptoms. PUF score last taken was 6, initially 13. Pt is on a HEP of PF strengthening ex's. She has been seen for only 4 visits over the past 5 months due to a delay in her therapy at the start and because of summer schedules and difficulty with scheduling. The pt is trying to recover from pneumonia and has missed the last 3 appts and was planning on canceling her next appt in a week; therefore after discussion with pt she requests DC from physical therapy and will return when she feels more health, in the spring. The pt will be discharged from therapy today to her HEP. Physical Therapy Plan Discharge Physical Therapy Discharge Reasons Patient Request Discharge Comments The pt will seek new referral when she is ready to return for therapy. Thank you for your referral.
== END 2024-02-14 09:33 | disposition home or self-care (01) ==
LOC: PHYS 13:45
PROVIDERS: Family Provider Physician Assistant; PCP Physician Assistant; Referring Provider Nurse Practitioner Adult Health; Visit Provider Nurse Practitioner Adult Health
DX: N81.89 Other female genital prolapse (principal); N39.3 Stress incontinence (female) (male); M54.50 Low back pain, unspecified; M25.659 Stiffness of unspecified hip, not elsewhere classified; M62.81 Muscle weakness (generalized); N94.10 Unspecified dyspareunia
CPT/HCPCS: 97110; 97140; 97161; 97530; 97535

== ENCOUNTER → 2024-06-10 15:10 | Outpatient (CLI) | payer OTHER, SELFPAY ==
--- NOTE | 2024-06-10 15:11 | DI.US.S_ITS ---
PROCEDURE: US PELVIC COMPLETE INDICATIONS: abnormal vaginal bleeding. malaise. TECHNIQUE: Real-time scanning was performed of the pelvic organs, with image documentation. Additional endovaginal scanning was necessary due to incomplete visualization of the adnexal and endometrial structures by transabdominal scanning. COMPARISON: None. FINDINGS: Uterus: Uterus is retroverted and normal in size at 8.3 x 3.9 x 4.7 cm. The myometrium is heterogeneous. The endometrium measures 2.2 cm combined thickness. There is a submucosal intrauterine fibroid noted in the posterior left uterus measuring 1.9 x 2.2 x 2.6 cm. Ovaries: The right ovary measures 1.9 x 1.1 x 1.5 cm, with a calculated ovarian volume of 1.5 cc. The left ovary is not visualized on this exam. The right ovary has a normal sonographic appearance. Less than 12 follicles can be seen in the right ovary. No adnexal masses are seen. Other: No pathologic free abdominal or pelvic fluid. IMPRESSION: 2.6 cm submucosal uterine fibroid which may explain patient's abnormal vaginal bleeding. Additionally, there is abnormal thickening of the endometrium measuring up to 2.2 cm which may include the submucosal fibroid. Consider further evaluation with endometrial biopsy. Left ovary is not visualized. Right ovary appears unremarkable. We strive to produce accurate, complete, and clear reports of imaging services. To assist us in improving patient care, this report was composed using standard report templates and voice recognition software. Therefore, it may contain abnormal punctuation, insertions and/or omissions. Occasional wrong-word or sound-alike substitutions may occur. Though we review the report and make efforts to correct it, we do recommend that the report be read carefully in proper context to recognize any text inaccuracies. Dictated by: Gabriel Johns M.D. on 06/10/2024 at 16:59 Approved by: Gabriel Johns M.D. on 06/10/2024 at 17:04
== END ==
PROVIDERS: Family Provider Physician Assistant; PCP Family Medicine; Referring Provider Physician Assistant; Visit Provider Physician Assistant
DX: N95.0 Postmenopausal bleeding (principal); D25.0 Submucous leiomyoma of uterus
CPT/HCPCS: 76830; 76856

== ENCOUNTER 2024-07-31 08:56 | Day surgery (SDC) | payer OTHER, SELFPAY ==
[2024-07-28 13:59] VITALS: BMI 22.8
--- NOTE | 2024-07-31 | PATH_ITS ---
[facility] Accession Number: [id number] No. of containers..02 Tissue . 01 Material submitted: . PART A: endocervix - ENDOCERVICAL CURETTINGS PART B: endometrium - ENDOMETRIAL . 01 Diagnosis: A. ENDOCERVICAL CURETTINGS: Detached fragments squamous mucosa with patchy atypia, favor a reactive etiology. Portions of endocervical tissue and detached strips of glandular epithelium; negative for significant atypia. . B. ENDOMETRIAL: Proliferative endometrium with patchy regions of stromal breakdown; negative for endometrioid intraepithelial neoplasia or malignancy. [facility] 08/08/2024 1544 Local . 01 Electronically signed: . Dania Huff MD, Pathologist NPI- [id number] . 01 Gross description: . Part A: ENDOCERVICAL CURETTINGS: Received in formalin are minute fragments of mucoid and hemorrhagic material measuring 2.5 x 2.5 x 0.3 cm in aggregate. Submitted in toto in 1 cassette. Part B: ENDOMETRIAL: Received in formalin are minute fragments of mucoid and hemorrhagic material measuring 2.5 x 2.5 x 0.3 cm in aggregate. Submitted in toto in 1 cassette. /MARIEL 08/02/2024 0054 Local . 01 Microscopic: . An immunohistochemical stain for p16 is performed to evaluate for block reactivity. The control stained with appropriate reactivity. . RESULTS: Block A1 P16: Negative for block immunostaining. . The absence of p16 block immunostaining mitigates against the presence of high risk HPV DNA in this biopsy. . * This test was developed and the performance characteristics were validated by [facility]. It has not been cleared or approved by the U.S. Food and Drug Administration. . 01 Pathologist provided ICD-10: N95.0 . 01 CPT . 779375, 615965, E45487 Specimen Comment: A courtesy copy of this report has been sent to [phone] Performed at: [address] [facility] [address], [place], [place] [id number] MD Tony Hoang MD Phone: [phone]
[2024-07-31] MEDS: ACETAMINOPHEN 325 MG TABLET 975 MG PO (09:38)
[2024-07-31] MEDS: LACTATED RINGERS 1,000 ML 42 ML IV (09:38)
[2024-07-31 09:45] VITALS: BP 118/72; PULSE 61; RESP 20; TEMP 36.4; O2SAT 98; BMI 22.7
--- NOTE | 2024-07-31 12:15 | PM.PREOP ---
Pre-operative Note COVID-19 COVID-19 status: Not tested Interval Note History & Physical reviewed/Exam performed by Physician: Yes Changes to H&P: No
--- NOTE | 2024-07-31 12:51 | SUR.OPER ---
Lithotomy on padded OR bed, head on pillow, arms secured on padded arm boards at <90 degrees abduction. Legs secured in padded yellow fins stirrups.
--- NOTE | 2024-07-31 13:19 | PM.GYNOP.1 ---
Operative Date/Time/Diagnoses Date of procedure: 07/31/24 Time of procedure: 12:45 Pre-op diagnosis: Postmenopausal bleeding Submucous myoma Post-op diagnosis: same Procedure & Clinicians Procedure: Procedures Operation Date: 07/31/24 10:30 Actual Procedure Side Surgeon p Hysteroscopy with D&C of the uterus, with endometrial ablation Dav Asher MD Indications: Elin is a 64-year-old , LMP between age 44 and 49, who presents with recent onset of postmenopausal bleeding. About 8 days ago, the patient had her 1st episode of postmenopausal bleeding and on 06/10/2024 underwent pelvic ultrasound here at [facility] which showed: PROCEDURE: US PELVIC COMPLETE INDICATIONS: abnormal vaginal bleeding. malaise. TECHNIQUE: Real-time scanning was performed of the pelvic organs, with image documentation. Additional endovaginal scanning was necessary due to incomplete visualization of the adnexal and endometrial structures by transabdominal scanning. COMPARISON: None. FINDINGS: Uterus: Uterus is retroverted and normal in size at 8.3 x 3.9 x 4.7 cm. The myometrium is heterogeneous. The endometrium measures 2.2 cm combined thickness. There is a submucosal intrauterine fibroid noted in the posterior left uterus measuring 1.9 x 2.2 x 2.6 cm. Ovaries: The right ovary measures 1.9 x 1.1 x 1.5 cm, with a calculated ovarian volume of 1.5 cc. The left ovary is not visualized on this exam. The right ovary has a normal sonographic appearance. Less than 12 follicles can be seen in the right ovary. No adnexal masses are seen. Other: No pathologic free abdominal or pelvic fluid. IMPRESSION: 2.6 cm submucosal uterine fibroid which may explain patient's abnormal vaginal bleeding. Additionally, there is abnormal thickening of the endometrium measuring up to 2.2 cm which may include the submucosal fibroid. Consider further evaluation with endometrial biopsy. Left ovary is not visualized. Right ovary appears unremarkable. This is the 1st episode of postmenopausal bleeding the patient has experienced. She experienced menarche at age 12 and has had regular predictable menses up until sometime between age 44 and 49 when her menses completely stopped and she began having menopausal symptoms. Patient is currently on estradiol patch (Climara 0.075 mg per day) with micronized progesterone 100 mg p.o. HS and compounded vaginal estrogen cream. She has no family history of endometrial or other gynecologic malignancies. With to potentially treatable causes for postmenopausal bleeding in polypoid changes as well as submucous myoma, we discussed options for further evaluation/treatment. After those discussions we came to the decision to proceed with hysteroscopic evaluation of the endometrial cavity, removal of any polypoid features noted there, and resection of the submucous component of the patient's fibroid in an attempt to end her postmenopausal bleeding episodes. If this surgery is not successful however we discussed the possibility of hysterectomy down the road should she continued to have episodic bleeding. A case request is submitted for hysteroscopy with biopsies and possible resection of submucous myoma along with D&C. She presents today for her scheduled surgery. Surgeon: Dav Asher Anesthesia Type: General Operative Notes Findings: The endometrial cavity is normal in appearance with no distortion of the endometrium from a submucous myoma. As a result no resection of the submucous myoma could be achieved as the exact location of the myoma was indiscernible at hysteroscopy. There were no other abnormalities within the endometrial cavity, and both tubal ostia were visualized. Closure Type: not applicable Specimen(s): endometrial curettings and other (Endocervical curettings) Applied: none Estimated blood loss (mL): 10 Blood products transfused: none Procedure in detail: With the patient under general LMA in the modified dorsal lithotomy position, the perineum, vagina, and lower abdomen were prepped and draped in the usual fashion for hysteroscopy with endometrial ablation. A pre-surgical safety time-out was then taken in accordance with [facility] Main OR protocols. A bivalve speculum was inserted in the vagina and the cervix visualized. The anterior lip of the cervix was grasped with a single-tooth tenaculum and the endocervical canal was then dilated to 6 mm diameter. Hysteroscope was placed through the endocervical canal into the endometrial cavity and the cavity was visualized. There were no localized abnormalities within the endometrial cavity and the endometrium itself was unremarkable. Both tubal ostia were visualized. The hysteroscope was then withdrawn and a fractional dilation and curettage was accomplished with separate pathologic specimen submitted for the endometrial and endocervical curettings. The uterine cavity was then sounded with the NovaSure device and found to be 6.0 cm in depth. The NovaSure device was then inserted through the endocervical canal into the endometrial cavity and the width of the cavity determined to be 3.7 cm. Cavity integrity test demonstrated the cavity to be intact and ablation was initiated. Ablation time was 37 seconds with power utilized 132 w. The NovaSure device was then removed from the endometrial cavity and hysteroscopy demonstrated excellent ablation effect. The tenaculum was then removed from the anterior lip of the cervix and no bleeding was encountered. The speculum was then removed from the vagina and the patient awakened from anesthesia. She was then transferred to the PACU for a period of observation and recovery having tolerated the procedure well. Complications: none Post-operative Condition: stable Disposition: PACU Plan for aftercare: Routine post-op care.
[2024-07-31 13:21] VITALS: BP 119/67; PULSE 69; RESP 12; TEMP 36.3; O2SAT 100
--- NOTE | 2024-07-31 13:25 | SUR.OPER ---
Lithotomy on padded OR bed, head on pillow, arms secured on padded arm boards at <90 degrees abduction. Legs secured in padded yellow fins stirrups.
[2024-07-31 13:29] VITALS: BP 125/62; PULSE 71; RESP 15; TEMP 36.3; O2SAT 98
[2024-07-31 13:34] VITALS: BP 116/60; PULSE 67; RESP 13; TEMP 36.3; O2SAT 99
== END 2024-07-31 14:08 | disposition home or self-care (01) ==
PROVIDERS: Family Provider Physician Assistant; PCP Family Medicine; Referring Provider Obstetrics & Gynecology; Visit Provider Obstetrics & Gynecology
PROC: 0UDB8ZZ Extraction of Endometrium, Via Natural or Artificial Opening Endoscopic (ICD-10-PCS; CPT 58558; principal; 2024-07-31 10:30)
DX: N95.0 Postmenopausal bleeding (principal); D25.0 Submucous leiomyoma of uterus
CPT/HCPCS: 58563; J1100; J1885; J2405; J2704; J3010